=== PATIENT | male | born 1965 | race Caucasian/White ===

== ENCOUNTER → 2020-02-18 | Outpatient (CLI) | payer BC, OTHER ==
[~2020-02-18] MED LIST: ASPIR 8181 MG PO; ATORVASTATIN CA10 MG PO; CLOPIDOGREL75 MG PO; FLOMAX0.4 MG PO; LISINOPRIL10 MG PO; METOPROLOL TART50 MG PO; MULTIVITAMINS1 EAC7 PO; OMEGA 3 1,0001 EACH PO
--- NOTE | 2020-02-18 10:28 | Diagnostic Imaging Report ---
Cervical spine, 4 views including flexion and extension INDICATION: ^[id number] ^[id number] ^EVALUATE FUSION STATUS Comparison: X-ray dated 01/18/2020. Discussion: Frontal and lateral views again are noted demonstrating the C2-C5 vertebral lies well with soft tissues partially securing C6 and completely obscuring C7. Stable post surgical changes from anterior fusion from C5 to C7. C2-C5 vertebral body heights are well-maintained. Flexion and extension views are negative for listhesis. There is question bony anterior bridging between C5 and C6. C6-7 cannot be well evaluated. Negative for abnormal prevertebral soft tissue thickening. IMPRESSION: Limited evaluation due to superimposed soft tissues as described above. C7 is not well visualized. C6 is only partially visualized. 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 Flexion and extension views are negative for malalignment. Consider follow-up CT scan for further evaluation if clinically indicated. Signed by: Siddhartha Méndez MD on 02/18/2020 10:24 AM
== END ==
LOC: RAD 09:27
PROVIDERS: ATTEND Neurological Surgery
DX: M50.20 Other cervical disc displacement, unspecified cervical region (principal); M43.22 Fusion of spine, cervical region
CPT/HCPCS: 72050

== ENCOUNTER → 2021-01-02 | Outpatient (CLI) | payer BC | LOC: RAD 11:20 | PROVIDERS: ATTEND Neurological Surgery | DX: M50.20 Other cervical disc displacement, unspecified cervical region (principal); M43.22 Fusion of spine, cervical region | CPT/HCPCS: 72050 ==

== ENCOUNTER → 2021-06-09 | Day surgery (SDC) | payer BC ==
[2021-06-08 08:05] LABS: BASOPHILS # (AUTO) 0.1 (0.0-0.1); BASOPHILS % 1.2 % (0.0-1.0); EOSINOPHILS # (AUTO) 0.3 (0.0-0.4); EOSINOPHILS % 3.6 % (0.0-6.0); HEMATOCRIT 44.8 % (38.2-49.6); HEMOGLOBIN 14.3 g/dL (14.0-18.0); LYMPHOCYTES # (AUTO) 3.5 (1.0-3.2); LYMPHOCYTES % 44.5 % (18.0-39.1); MEAN CORPUSCULAR HEMOGLOBIN 28.9 pg (28-32); MEAN CORPUSCULAR HGB CONC 31.9 g/dL (31-35); MEAN CORPUSCULAR VOLUME 90.5 fL (81-99); MONOCYTES # (AUTO) 0.5 (0.2-0.8); MONOCYTES % 6.9 % (4.4-11.3); NEUTROPHILS # (AUTO) 3.4 (2.1-6.9); NEUTROPHILS % 43.3 % (38.7-80.0); PLATELET COUNT 236 x10e3/uL (140-360); RED BLOOD COUNT 4.95 x10e6/uL (4.3-5.7); RED CELL DISTRIBUTION WIDTH 13.2 % (11.7-14.4)
[~2021-06-09] MED LIST changes: +LIDOCAINE HCL 2% LOCAL INJ 5 ML SDV VIAL INJ ONE; +MIDAZOLAM HCL 2 MG/2 ML VIAL ONE; +MODAFINIL100 MG PO; +PROPOFOL IV EMULSION 10 MG/ML 20 ML VIAL ONE
[2021-06-09 15:16] VITALS: BP 122/76
== END | disposition home or self-care (01) ==
LOC: OR 08:00
PROVIDERS: ATTEND Internal Medicine Gastroenterology
DX: Z12.11 Encounter for screening for malignant neoplasm of colon (principal); D12.0 Benign neoplasm of cecum; K57.90 Diverticulosis of intestine, part unspecified, without perforation or abscess without bleeding; K63.9 Disease of intestine, unspecified; K64.8 Other hemorrhoids; R10.13 Epigastric pain; K44.9 Diaphragmatic hernia without obstruction or gangrene; K29.70 Gastritis, unspecified, without bleeding; K57.30 Diverticulosis of large intestine without perforation or abscess without bleeding; U07.1 COVID-19; G47.33 Obstructive sleep apnea (adult) (pediatric); I10 Essential (primary) hypertension; I25.10 Atherosclerotic heart disease of native coronary artery without angina pectoris; Z01.810 Encounter for preprocedural cardiovascular examination; Z01.812 Encounter for preprocedural laboratory examination
CPT/HCPCS: 36415; 43239; 45380; 45384; 85025; 93005; J2001; J2250; J2704; U0002; 45378